=== PATIENT | male | born 1995 | race African-American/Black ===

== ENCOUNTER 2020-02-17 11:52 | Emergency (ER) | payer OTHER ==
[2020-02-17 12:03] VITALS: BP 156/92; PULSE 103; RESP 20
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
== END 2020-02-17 12:22 | disposition home or self-care (01) ==
LOC: EC 11:52
DX: S90.811A Abrasion, right foot, initial encounter (principal); S41.112A Laceration without foreign body of left upper arm, initial encounter; Y92.89 Other specified places as the place of occurrence of the external cause
CPT/HCPCS: 99283

== ENCOUNTER 2020-02-20 08:25 | Inpatient (IN) | payer OTHER ==
--- NOTE | 2020-02-20 10:01 | ED ---
General Adult HPI - General Chief complaint: Psychiatric Symptoms Stated complaint: mental health Time Seen by Provider: 02/20/20 08:30 Source: patient, police, RN notes reviewed, old records reviewed Mode of arrival: wheelchair - History of Present Illness Initial comments: This is a 24-year-old male who presents emergency department from the long term in the custody of the sheri. Patient was brought in because he was acting bizarrely at the long term he was yelling and screaming and taking off his clothes as well as drinking out of the toilet. Patient states that he doesn't even know how he got to long term he doesn't remember that. Patient denies any physical complaints. Patient denies any previous psychiatric history however the long term came with paperwork from [facility] that indicated he had a mental health history. Patient denies any drug use or alcohol use. - Related Data Allergies Allergy/AdvReac Type Severity Reaction Status Date / Time No Known Allergies Allergy Verified 02/20/20 08:32 Review of Systems ROS Statement: Those systems with pertinent positive or pertinent negative responses have been documented in the HPI. ROS Other: All systems not noted in ROS Statement are negative. Past Medical History Past Medical History: Unable to Obtain History of Any Multi-Drug Resistant Organisms: Unobtainable Past Surgical History: Unable to Obtain Past Psychological History: Unable to Obtain Smoking Status: Unknown if ever smoked Past Alcohol Use History: Unable to Obtain Past Drug Use History: Unable to Obtain General Exam - General Exam Comments Initial Comments: GENERAL: Patient is well-developed and well-nourished. Patient is nontoxic and well- hydrated and is in no acute distress. ENT: Neck is soft and supple. No significant lymphadenopathy is noted. Oropharynx is clear. Moist mucous membranes. Neck has full range of motion without eliciting any pain. EYES: The sclera were anicteric and conjunctiva were pink and moist. Extraocular movements were intact and pupils were equal round and reactive to light. Eyelids were unremarkable. PULMONARY: Unlabored respirations. Good breath sounds bilaterally. No audible rales rhonchi or wheezing was noted. CARDIOVASCULAR: There is a regular rate and rhythm without any murmurs gallops or rubs. ABDOMEN: Soft and nontender with normal bowel sounds. SKIN: Skin is clear with no lesions or rashes and otherwise unremarkable. NEUROLOGIC: Patient is alert and oriented x3. Cranial nerves II through XII are grossly intact. Motor and sensory are also intact. Normal speech, volume and content. Symmetrical smile. MUSCULOSKELETAL: Normal extremities with adequate strength and full range of motion. LYMPHATICS: No significant lymphadenopathy is noted PSYCHIATRIC: Normal psychiatric evaluation. Course Vital Signs 02/20/20 08:29 Temperature 98.7 F Pulse Rate 94 Respiratory 18 Rate Blood Pressure 183/111 O2 Sat by Pulse 98 Oximetry Disposition Clinical Impression: Psychosis Disposition: ADMITTED IP TO THIS HOSP Referrals: None,Stated [Primary Care Provider] - 1-2 days Time of Disposition: 13:20
[2020-02-20] MEDS ORDERED: MAG HYDROX/AL HYDROX/SIMETH 30 ML CUP PO PRN (14:02)
[2020-02-20] MEDS ORDERED: LORazepam 1 MG TAB PO PRN ×2 (14:02→16:19)
[2020-02-20] MEDS ORDERED: ACETAMINOPHEN TAB 325 MG TAB PO PRN (14:02)
[2020-02-20] MEDS ORDERED: ZIPRASIDONE 20 MG VIAL IM PRN (14:02)
[2020-02-20] MEDS ORDERED: LORazepam 2 MG/ML INJ IM PRN (14:04)
--- NOTE | 2020-02-20 15:49 | P.MHFACE ---
Face to Face Restrain/Seclus - Evaluation Patient's Immediate Situation: Endangers self safety, Endangers staff safety Patient's Reaction to the Intervention: Uncooperative, Restless, Resistive to care Patient's Medical & Behavioral Condition: Manic, Flight of ideas, Bizarre behavior Need to Continue or Terminate Restraint or Seclusion: Terminate Need to Continue or Terminate Restraint/Seclusion - Comment: Patient was placed in seclusion for erratic and bizarre behavior. He has not been violent towards staff. He was given 1 mg of Ativan and 20 mg of Geodon. He is currently sedated and does not require restraints anymore.
--- NOTE | 2020-02-20 15:50 | P.PN ---
Progress Note - Text Progress Note Date: 02/20/20 Patient is currently sedated after receiving Ativan and Geodon. He is not appropriate to be seen for history and physical. We will attempt to see him at a later date.
[2020-02-20] MEDS ORDERED: HALOPERIDOL LACTATE 5 MG/ML 1 ML VIAL IM PRN (16:21)
[2020-02-20] MEDS ORDERED: haloperidoL 5 MG TAB PO PRN (16:21)
[2020-02-20] MEDS ORDERED: BENZTROPINE 2 MG/2 ML AMP IM PRN (16:22)
[2020-02-20] MEDS ORDERED: BENZTROPINE MESYLATE 1 MG TAB PO PRN (16:22)
[2020-02-20] MEDS: LORazepam 2 MG/ML INJ IM PRN (23:21)
--- NOTE | 2020-02-21 11:52 | P.HP ---
Psychiatric H&P - . History & Physical: Allergies Allergy/AdvReac Type Severity Reaction Status Date / Time No Known Allergies Allergy Verified 02/20/20 08:32 Vital Signs Temp 98.7 F 02/20/20 08:29 Pulse 81 02/20/20 18:15 Resp 16 02/20/20 18:15 BP 145/96 02/20/20 18:15 Pulse Ox 98 02/20/20 08:29 Intake & Output 02/20/20 02/21/20 02/21/20 18:59 06:59 18:59 Weight 99.79 kg 02/21/20 11:18 IDENTIFYING DATA: This patient is a 24-year-old single -Central African male who was admitted on a petition and clinical certificate for acute symptoms of psychosis. HPI: The [facility]. He was originally arrested for [place] the [place] on [address] [place] excess of 100 miles an hour at times. Documentation from the [facility] suggests that the patient was agitated he was not eating. He felt that the guards might be poisoning his food or water. Because of his psychosis he was brought to the hospital for evaluation. In the same notes that mentions that contact was made with the patient's family specifically his sister Stella. She indicated that the patient has a diagnosis of schizophrenia and bipolar disorder. I did attempt to call Stella she indicated that the patient does have that diagnosis and that he was on 2 psychotropic medications. She states one of them was lithium she is unaware of the other medication and she could no longer read the label on the bottle. The patient and his family reside in the [facility]. Yesterday upon arriving to the mental health unit the patient was agitated he was exposing himself he required injections of medication as well as temporary seclusion. Today the patient is found in the quiet room with the door open. He is sleeping but is verbally arousable. He spontaneously describes delusional thoughts as well as endorsing hallucinations. He states that his family members are here in the hospital and he is being kept from them. He provides contradicting information at times throughout the interview. He discusses paranoid persecutory themes. He is agitated during the interview and the session was abbreviated. PAST PSYCHIATRIC HISTORY: We believe that the patient has been psychiatrically hospitalized before he was on a previous treatment order last year. At this point the only medication I'm aware of his lithium but it is presumed that he has been noncompliant with medication. PMH: None reported ALLERGIES: NO KNOWN DRUG ALLERGIES MEDICATIONS: None CHEMICAL DEPENDENCY HISTORY: None reported no urine drug screen is available FAMILY PSYCHIATRIC HISTORY: Unknown FAMILY CHEMICAL DEPENDENCY HISTORY: Unknown SOCIAL HISTORY: The patient's is a 24-year-old -Central African male he resides with his family in the [facility], they are refugees from [place] and originally were placed in [place]. There is report that he has been working. No other information is available at this time. MENTAL STATUS EXAM: The patient is found resting in bed he is verbally arousable. He appears his stated age she is dressed in hospital gowns. He only makes brief eye contact 3 times during our interaction. Initially speech is very quiet I need him to repeat himself several times. As the session progresses he does speak more loudly. Affect is initially blunted but becomes more irritable during the interaction. I did attempt to use distraction to other topics to redirect his irritability. He demonstrated no verbal or physical aggressiveness. He did provide nonspecific answers to several questions he denied having thoughts of wanting to hurt himself or others. He endorses auditory hallucinations as noted. He spontaneously describes paranoid persecutory thoughts. Insight and judgment are impaired. No cognitive testing could be performed during this interaction. STRENGTHS/WEAKNESSES: His: Supportive family, housing, possible employment weaknesses: Noncompliance with medication INTELLECTUAL FUNCTIONING: Average IMPRESSIONS: [] 1. Psychosis unspecified rule out schizoaffective disorder PLAN: Patient has been admitted to the mental health unit involuntarily. I will complete a second clinical certificate. He will be seen by internal medicine for routine history and physical exam we will attempt to perform routine lab work including a drug screen. Social work will attempt to complete a psychosocial assessment and begin discharge planning. I did make initial contact with his sister Stella just asking questions about his previous care. Unfortunately she was not able to provide much information so we will have to try to contact his last treating facility regarding medication. I would like to know what antipsychotic he was stabilized with during his last admission so that we are able to reinitiate that medication here. We will monitor him for safety we will provide reality orientation when possible. He is encouraged to participate in the milieu appropriately
--- NOTE | 2020-02-21 18:55 | P.HPMEDMHU ---
History of Present Illness H&P Date: 02/21/20 (delayed charting seen at 1500) Chief Complaint: psychosis Patient is a 24-year-old -Slovenian male admitted on petition after being brought in [facility] secondary to paranoia, initially was found [place] the wrong direction [place] [address] [place] 100 miles an hour. He was attempted be seen by our service line yesterday however he was agitated and requiring restraints, and then was sedated. Patient has continued to be in the quiet room and has been dealing with agitation. Patient seen and examined at bedside with nursing present. When asked to questions he keeps saying that he is fine. He answers this questions to chest pain, shortness of breath, cough, and abdominal pain. He then gets increasingly agitated in questioning was ceased. Most of the time when he is speaking in is garbled and difficult to understand. All information is obtained from thorough review of direct mentation from this hospitalization including history and physical from psychiatry, EPS, and emergency notes. Review of Systems Unable to obtain review of systems secondary to patient's mental health, and him unwilling to answer questions. Past Medical History Past Medical History: Unable to Obtain History of Any Multi-Drug Resistant Organisms: Unobtainable Past Surgical History: Unable to Obtain Past Psychological History: Unable to Obtain Smoking Status: Unknown if ever smoked Past Alcohol Use History: Unable to Obtain Past Drug Use History: Unable to Obtain - Past Family History Mother Family Medical History: Unable to Obtain Medications and Allergies Home Medications Medication Instructions Recorded Confirmed Type No Known Home Medications 02/20/20 02/20/20 History Allergies Allergy/AdvReac Type Severity Reaction Status Date / Time No Known Allergies Allergy Verified 02/20/20 08:32 Physical Exam Osteopathic Statement: *. No significant issues noted on an osteopathic structural exam other than those noted in the History and Physical/Consult. Vitals: Vital Signs Temp 02/21/20 13:00 98.1 F General: non toxic, no distress, appears at stated age, normal weight Derm: Patient currently Does not want to take this down Head: atraumatic, normocephalic, symmetric Eyes: EOMI, no lid lag, anicteric sclera, Mouth: no lip lesion, mucus membranes moist Cardiovascular: S1S2 reg, no murmur, Lungs: CTA bilateral, no rhonchi, no rales , no accessory muscle use Abdominal: soft, nontender to palpation, no guarding, no appreciable organomegaly, normal bowel sounds Ext: Moving all 4 extremities independently, able to rotate from front to back to bed without difficulty Neuro: Cranial nerves II through XII grossly intact, no resting or intention tremor Psych: Awake, alert to self, appears anxious, most of his speech is garbled and unintelligible Cranial Nerve Examination - Cranial Nerves Cranial Nerve II- Optic: Intact Cranial Nerve III- Oculomotor: Intact Cranial Nerve IV- Trochlear: Intact Cranial Nerve V- Trigeminal: Intact Cranial Nerve - Abducens: Intact Cranial Nerve VII- Facial: Intact Cranial Nerve VIII- Auditory: Intact Cranial Nerve IX- Glossopharyngeal: Intact Cranial Nerve X- Vagus: Intact Cranial Nerve XI- Accessory: Intact Cranial Nerve XII- Hypoglossal: Intact Assessment and Plan Assessment: Psychosis - your psych management Thank you for allowing us to participate in the care of this pleasant patient. Do not hesitate to contact us with questions. Someone can be reached from the [facility] hospitalist group all hours of the day at [phone] or via [employer]. Nursing to call us if any acute issues arise during hospital stay.
[2020-02-22 09:45] VITALS: BMI 32.5
--- NOTE | 2020-02-22 09:53 | P.PN ---
Progress Note - Text Interval history: The patient is found in the hallway on 2 separate occasions this morning I approached him and asked him to speak with me in a conference room. He did not acknowledge me either time or make eye contact. With both attempted interactions he simply walked away. Staff report that this morning he has been mute. He did interact with the social media senior associate briefly making bizarre statements. He reportedly slept 3 hours. So far he has not been eating although we have been trying to provide a vegan menu as that is his preferred diet. He has been refusing vital signs he is refused lab work. We continue to try to obtain information from his outpatient psychiatric agency which is out of the area. Several calls have been placed we are awaiting response so we can see which antipsychotic medication he was stabilized with last. As noted I did speak to his sister yesterday who was only partially helpful in providing info rmation regarding medication. While I was on that call his sister asked the patient's mother if she could provide information and she could not. Mental status exam: The patient is a 24-year-old -Lebanese male he is ambulating in the hallway he is dressed in hospital gowns and wearing a blanket over top. He is initially found this morning staring at the wall for several minutes. He does not acknowledge me upon approach he makes no eye contact and he walks away. Later in the morning a second attempt was made to engage him in an interview and he provided the same response. He is found slowly walking in the hallway throughout the morning. He continues to demonstrate behavior that is consistent with the psychosis that he reported yesterday. He appears to be in no physical distress. He is demonstrating no verbal or physical aggressiveness he is demonstrating no involuntary repetitive movements. Insight and judgment are poor. Affect is flat. Plan: We will continue our efforts to obtain treatment information from his last known outpatient provider. If we're unsuccessful we will initiate Invega 6 mg daily starting today. I am selecting this as an antipsychotic as it is one of our choices for long-term Depo form. We will monitor him for safety we will continue to try to engage him in a therapeutic manner. Once he is responsive we will encourage him to participate in the milieu. We will monitor for any aggressiveness. Vital signs and lab work unavailable at this time due to his lack of cooperation. He requires continued psychiatric hospitalization.
[2020-02-22] MEDS ORDERED: haloperidoL 5 MG TAB PO SCH (21:00)
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
[2020-02-23] MEDS: PALIPERIDONE 6 MG TAB.ER.24 PO SCH (11:03)
[2020-02-24] MEDS: PALIPERIDONE 6 MG TAB.ER.24 PO SCH (09:36)
--- NOTE | 2020-02-24 16:28 | P.PN ---
Progress Note - Text Progress Note Date: 02/24/20 Interval history: Patient seen in [facility] today. He relates that his mood feels normal today. He was alert and cooperative to come into the interview room. He seems to relay that he wasn't offered any medication. We did discuss that invega was to be started yesterday. Mental status exam: He is alert and cooperative with the interview. His affect is restricted. He describes his mood as "normal." He does not verbalize any thoughts of harm to self or others. He does not verbalize any hallucinations. He does not display any agitation. Plan: We'll monitor patient's ongoing status and response to treatment regimen. We'll continue to monitor regarding compliance with medications. Monitor for any medication side effects.
[2020-02-25] MEDS: ZIPRASIDONE 20 MG VIAL IM PRN (01:47)
[2020-02-25] MEDS: LORazepam 2 MG/ML INJ IM PRN (01:47)
[2020-02-25] MEDS: PALIPERIDONE 6 MG TAB.ER.24 PO SCH (10:36)
--- NOTE | 2020-02-25 11:24 | P.PN ---
Progress Note - Text Progress Note Date: 02/25/20 Interval history: Patient was seen in [facility] again today. He makes reference to having received 2 injections last night. He states that the medication made him feel lazy. He makes reference to not sleeping well last night, makes reference to multiple checks every 15 minutes. It seems as though he is not taking the oral inVega, he inquires what invega can be beneficial for which we discussed. Mental status exam: He is alert and cooperative with the interview. His speech is fluent, not rapid or pressured. His mood he seems to describe this fine. He does not verbalize any thoughts of harm to self or others. He denies any hallucinations. He seems to describe that many patients are not taking theirr medications because of 'what is going on behind closed doors.' He does not display any significant degree of agitation. Plan: Patient will be maintained on current treatment regimen. We did discuss and he is educated about some of the purposes of invega. Continue to monitor compliance and monitor for any medication side effects.
[2020-02-26] MEDS: PALIPERIDONE 6 MG TAB.ER.24 PO SCH (09:07)
--- NOTE | 2020-02-26 10:58 | P.PN ---
Progress Note - Text Interval history: The patient is found in the hallway he refuses to speak with me. He is standing in the hallway leaning against the wall he intentionally makes no eye contact with me. He provides no verbal response. During treatment team meeting I was informed that he demonstrated some agitated behavior over the weekend and required intramuscular Geodon. He has been refusing the oral invega. He apparently signed a deferral agreement however so we will need to request a demand for hearing. He has been selectively eating some meals. Mental status exam: The patient is an -[place]amanian male appearing his stated age he is dressed in hospital gowns and is wearing a blanket over top. Eye contact is absent. He provides no verbal responses to my inquiries. He appears to continue to have acute symptoms of psychosis. Insight and judgment are poor. During our brief interaction he demonstrated no verbal or physical aggres siveness he demonstrates no involuntary repetitive movements. He appears to be in no physical distress. He is standing and ambulating without difficulty. Plan: We will request a demand for hearing the patient remains acutely psychotic and is refusing antipsychotic medication. He has refused vital signs yesterday and today. We will monitor him for safety efforts are made to provide reality orientation when possible. He requires continued psychiatric hospitalization.
[2020-02-27] MEDS: LORazepam 2 MG/ML INJ IM PRN (05:43)
[2020-02-27] MEDS: ZIPRASIDONE 20 MG VIAL IM PRN (05:43)
--- NOTE | 2020-02-27 10:45 | P.PN ---
Progress Note - Text Interval history: The patient's found in his room sleeping. He is lethargic he received intramuscular injections this morning for agitated behavior. He was not able to maintain alertness for the conversation. I did attempt to speak with him twice during the morning hours. Staff report that the patient continues to demonstrate psychotic behavior. There is some documentation that he demonstrated intimidating behavior. He continues to refuse the oral Invega. We have filed a demand for hearing. Mental status exam: The patient is resting in bed comfortably. He is in no distress. He is very briefly verbally arousable and then returns to sleep. I did try to interview him twice this morning. He is dressed in hospital gowns c overed with a blanket. The interaction was very limited. Insight and judgment remain poor. Plan: The patient demonstrates acute symptoms of psychosis he is requiring when necessary injections for behavioral disturbances. We are awaiting his court hearing. He requires continued psychiatric hospitalization. No recent vital signs available.
[2020-02-27] MEDS: PALIPERIDONE 6 MG TAB.ER.24 PO SCH (12:17)
[2020-02-28] MEDS: ZIPRASIDONE 20 MG VIAL IM PRN (06:27)
[2020-02-28] MEDS: LORazepam 2 MG/ML INJ IM PRN (06:27)
[2020-02-28] MEDS: PALIPERIDONE 6 MG TAB.ER.24 PO SCH (08:55)
--- NOTE | 2020-02-28 11:15 | P.PN ---
Progress Note - Text Interval history: The patient is found in his room sleeping he is verbally arousable. He is irritable he refuses to follow me to an interview room he demands at the room lights be turned off and the doors closed. He provides no answers to any questions asked. He makes spontaneous statements that he needs questions answered and needs information. Despite further attempts to provide him information he was uncooperative. He continues to refuse the invega. The patient does not have court schedule until March 06. Staff report that the patient was verbally aggressive in the evening he required injections again. Mental status exam the patient is lying in bed he makes poor eye contact he is uncooperative he demonstrates irritability. He continues to demonstrate evidence of psychosis. Insight and judgment are poor. He appears to be in no physical distress. He is disheveled he is covered almost completely with a blanket. He demonstrates no abnormal involuntary movements. Plan: The patient remains acutely psychotic with agitated behavior he is refusing oral antipsychotic medication. He is receiving injections of Geodon for acute psychosis/agitation. We are waiting his court hearing on March 06. He requires continued psychiatric hospitalization.
--- NOTE | 2020-02-29 08:55 | P.PN ---
Progress Note - Text Interval history: The patient is found in the hallway standing outside of my office against the wall. Despite several attempts the patient would not engage in conversation he would not meet with me in an interview room. Only once briefly did he make eye contacts otherwise he purposely looked away while I attempted to speak with him. The patient continues to refuse lab work he refuses vital signs. He continues to refuse the oral antipsychotic medication. His last injection of Geodon for agitation was given yesterday morning. Mental status exam: The patient is an alert -[place] male appearing his stated age. He is dressed in hospital gowns he is wearing a blanket over top. He appears to be no physical distress. Affect is flat. He provides no verbal responses despite several attempts to provoke his participation in an interview. He is demonstrating no verbal or physical aggressiveness he is demonstrating no involuntary repetitive movements. Insight and judgment remain poor. He appears acutely psychotic. Plan: We continue to await the patient's court hearing which is scheduled for March 06. We will continue to offer the oral invega. We will use the injectable Geodon as needed for acute psychosis or agitation. We will monitor him for safety. We will continue to monitor his food and water intake. It appears that he ate most of his dinner last evening. We will involve family in treatment and discharge planning as he will allow. He requires continued psychiatric hospitalization.
[2020-02-29] MEDS: PALIPERIDONE 6 MG TAB.ER.24 PO SCH (09:10)
[2020-03-01] MEDS: ZIPRASIDONE 20 MG VIAL IM PRN (00:57)
[2020-03-01] MEDS: LORazepam 2 MG/ML INJ IM PRN (01:00)
--- NOTE | 2020-03-01 09:13 | P.PN ---
Progress Note - Text Interval history: The patient is found in his room lying in bed. He is verbally arousable. Today he participates in the conversation. He states that he would like to be released from the hospital. He indicates he does not take medication at home so he does not need it here. He states he is up all night because people keep checking on him as part of the safety rounds. He reports that he received another injection of medication. He indicates he is eating he is not attending groups. He reports he has not been speaking with his family via phone. Mental status exam: The patient is alert he is lying in bed he is dressed in hospital gowns he's partially covered with a blanket. Eye contact is intermittent. He has spontaneous speech is mildly pressured at times. He has an irritable affect. He has poor insight into his symptoms he continues to display evidence of psychosis. He denies expansion any auditory or visual garibay ucinations. He continues to describe paranoid and persecutory thoughts. He demonstrated no aggressiveness during our interaction he demonstrates no involuntary repetitive movements. Plan: The patient remains acutely psychotic he requires continued psychiatric hospitalization. He is refusing the oral Invega. He is refusing vital signs. No laboratory data available to review. We are awaiting his court date March 06.
[2020-03-01] MEDS: PALIPERIDONE 6 MG TAB.ER.24 PO SCH (10:29)
--- NOTE | 2020-03-02 09:54 | P.PN ---
Progress Note - Text Interval history: The patient's found in the hallway he again provides no response when I approach him. He deliberately makes no eye contact. He is observed standing in place and also ambulating slowly throughout the unit. He continues to refuse the oral invega. It appears he did receive Ativan early this morning but now Geodon injection. Mental status exam: The patient is alert he is ambulating without difficulty he appears to be in no physical distress, he is dressed in hospital gown is wrapped in a blanket. He deliberately makes no eye contact he provides no verbal response when I attempt to speak with him. He appears grossly psychotic. He is demonstrating no verbal or physical aggressiveness at this time. There is no spontaneous speech. Insight and judgment are poor. Plan: The patient will be offered the oral invega. He has been refusing antipsychotic medication. He remains acutely psychotic. We are waiting his court date of March 06. He has been refusing vital signs and lab work. He we'll monitor for safety. We will provide reality orientation when possible. He requires continued psychiatric hospitalization.
[2020-03-02] MEDS: PALIPERIDONE 6 MG TAB.ER.24 PO SCH (10:02)
[2020-03-03] MEDS: PALIPERIDONE 6 MG TAB.ER.24 PO SCH (08:42)
--- NOTE | 2020-03-03 09:57 | P.PN ---
Progress Note - Text Interval history: The patient's found in the hallway just outside of my office standing by the wall. Upon approach he makes no eye contacts he provides no direct verbal response. Attempts were made to have him engage in a conversation and follow me to an interview room. He declined. Afterwards he is observed standing outside speaking angrily to himself. In reviewing notes it appears that he refused all 3 meals yesterday. He only slept approximately 2 hours last evening. He continues to refuse the oral invega. Mental status exam: The patient is an alert -Sudanese male appearing his stated age, he continues to be dressed in hospital gowns and he is wearing a blanket over top. He has a more irritable agitated demeanor this morning. He remains uncooperative in terms of participating in the interview. He appears grossly psychotic. Insight and judgment are poor. He demonstrates no evidence of acute physical distress respirations normal he is standing and ambulating without ataxia. He is demonstrating no involuntary repetitive movements. Plan: The patient is being offered the oral invega which she is refusing. He refused meals yesterday we will continue to encourage appropriate nutrition and hydration we are waiting his court date March 06. He remains acutely psychotic and requires continued psychiatric hospitalization.
[2020-03-03] MEDS: ZIPRASIDONE 20 MG VIAL IM PRN (12:18)
[2020-03-04] MEDS: PALIPERIDONE 6 MG TAB.ER.24 PO SCH (08:25)
[2020-03-04] MEDS ORDERED: WATER FOR INJECTION, STERILE 10 ML IV ONE (10:02)
[2020-03-04] MEDS ORDERED: ZIPRASIDONE 20 MG VIAL IM ONE (10:02)
[2020-03-04] MEDS: ZIPRASIDONE 20 MG VIAL IM PRN (10:12)
[2020-03-04] MEDS: LORazepam 2 MG/ML INJ IM PRN (10:12)
--- NOTE | 2020-03-04 10:14 | P.PN ---
Progress Note - Text Interval history: The patient's found in the hallway. Twice I attempted to engage him in conversation and tried to get him to speak with me in an interview room. Both times he refuses. He is observed in the hallway slowly pacing. He is talking to himself out loud. He will briefly interact with some peers in the hallway. He continues to refuse the invega. He is refusing vital signs he has not complied with blood work. It appears that he ate his breakfast this morning and 25% of dinner yesterday. He did receive a Geodon injection just afternoon yesterday due to his agitated behavior. Mental status exam: The patient is an -[place]guill[place] male appearing his stated age. He is dressed in hospital gowns is covered with a blanket. He slowly paces in the hallway. He is quieter today compared to yesterday morning. He is still speaking out loud to himself. He refuses to speak with me he makes no eye contact. Insight and judgment remain poor. Based on his behavior and statements he continues to appear acutely psychotic. He does not answer any questions as part of the psychiatric review of systems. He appears to be in no acute physical distress. Plan: The patient will be offered the invega, we are awaiting his court date on March 06. He requires continued psychiatric hospitalization due to his acute psychosis. We will monitor him for safety. He is encouraged to properly participate in the milieu. Efforts are made to provide reality orientation when possible.
[2020-03-05] MEDS: LORazepam 2 MG/ML INJ IM PRN (02:19)
[2020-03-05] MEDS: ZIPRASIDONE 20 MG VIAL IM PRN (02:19)
[2020-03-05] MEDS: PALIPERIDONE 6 MG TAB.ER.24 PO SCH (08:33)
--- NOTE | 2020-03-05 10:54 | P.PN ---
Progress Note - Text Interval history: The patient is found in the hallway he follows me to a conference room to speak. The patient actually engaged in conversation for several minutes. He indicates that he has not been speaking to me lately but he was trying to show me with his eyes "what is going on around here". He describes his principal concern as children being in danger. He asked several unrelated questions. He states that he feels that I'm related to several people here and I just discharged my son from the mental health unit yesterday. He describes feelings that people are unsafe and he is trying to protect people. He indicates he does not require a medication he is a vegan and he meditates "which is my drug". Staff report that the patient continues to demonstrate some agitated behavior. He did receive an injection of Geodon and Ativan early this morning. Mental status exam: The patient is alert he is dressed in hospital gowns he is covered with a blanket. He is found standing in the hallway outside of my office. He follows me to an interview room. He does remain seated in the chair for the duration of our conversation. Speech is fluent and spontaneous nonpressured he is verbose. He demonstrates some tangential thinking and loose associations. He continues to describe paranoid and persecutory thoughts. He describes himself in a grandiose fashion as a protector. Insight and judgment are poor. He demonstrated no verbal or physical aggressiveness he demonstrates no involuntary repetitive movements. He denies having any thoughts of harming himself or harming anyone else. Affect is bland throughout the conversation. Plan: The patient is being offered the invega. He has been refusing. Assuming we are granted a treatment order we will administer Geodon IM if he refuses the oral invega. The patient remains acutely psychotic he requires inpatient psychiatric care. We will continue to monitor him for safety. Efforts are made to provide reality orientation when possible
[2020-03-06] MEDS: PALIPERIDONE 6 MG TAB.ER.24 PO SCH (09:33)
--- NOTE | 2020-03-06 11:14 | P.PN ---
Progress Note - Text Progress Note Date: 03/06/20 Interval history: Patient was seen wandering the hallways with a bedsheet around his back and was approached by medical writer to speak with patient and. Patient appeared to be responding to internal stimuli speaking is laughing to himself at times and has been noticed to be wandering the hallways. Patient continues to be refusing medications and treatment and has been sleeping on and off and has been withdrawn/isolative. Patient acknowledges medical writer however adamantly declined to be interviewed and stated "no questions" and proceeded to walk away from medical writer. Mental status exam: General Appearance: Patient appears to be stated age is alert, uncooperative and responding to internal stimuli. Wearing a bedsheet and hospital gown. Behavior: No agitated behavior. Patient is responding to internal stimuli Speech: Patient's speech is fluent and nonpressured. Mood/Affect: Unable to be assessed Suicidality/Homicidality: Unable to be assessed Perceptions: Responding to internal stimuli Though content/process: [place]. Bizarre. Memory and concentration: Unable to be assessed Judgment and insight: Poor Assessment/Plan: Continue with current diagnosis. Patient continues to meet criteria for inpatient psychiatric admission for symptom stabilization and safety.Patient will be maintained on current psychotropic medication regimen. Patient is refusing his medications at this time. Will continue to monitor ongoing response to treatment. Patient is scheduled for court hearing today.
[2020-03-07] MEDS: PALIPERIDONE 6 MG TAB.ER.24 PO SCH (09:39)
--- NOTE | 2020-03-07 09:56 | P.PN ---
Progress Note - Text Interval history: The patient is found in his room. He is laying on the floor adjacent to his bed. Upon entering the room he asked that I leave as he does not wish to participate in any questions. In inquiring why he was on the floor he states he did not suffer a fall. The patient has refused the oral Invega this morning. He was scheduled have a court hearing yesterday. If we did receive a treatment order we will need to were Geodon injection if he refuses the oral invega. He refuses vital signs other than a temperature. The labs available. Mental status exam: The patient is an -Nigerian male appearing his stated age. He is covered up to his neck with a blanket he is lying supine on the floor adjacent to his bed. He is able to speak appropriately he is in no physical distress. He does have spontaneous speech. He objects to participating in a mental status exam today. Insight and judgment remain poor. Prior to entering the room he could be heard talking out loud to himself. During our brief interaction he makes several irrelevant statements that appear paranoid in nature. He demonstrated no verbal or physical aggressiveness he is demonstrating no involuntary repetitive movements. Insight and judgment remain poor. Plan: The patient will continue on the invega once I confirm that we did receive a treatment order we will initiate Geodon injections if he refuses the oral medication. The patient remains grossly psychotic and requires continued inpatient psychiatric care. We will monitor him for safety and provide reality orientation when possible. He is encouraged to participate in the milieu but he has been refusing.
[2020-03-08] MEDS: PALIPERIDONE 6 MG TAB.ER.24 PO SCH (08:34)
--- NOTE | 2020-03-08 11:51 | P.PN ---
Progress Note - Text Interval history: The patient's found in his room upon approaching his room he could be heard talking loudly to himself. Upon approach he indicates he is fine. He states that he wants his father to know that he is here and he has 2 parents. He states that they both need to be here to take him from this hospital. He reports he did not eat breakfast this morning he did not sleep well last night. He has been isolating in his room during the earlier part of the morning he was observed standing in the hallway later in the morning. Staff report no behavioral disturbances. Apparently there is some legal technicality and we have not been given a copy of the court order therefore we have not been able to enforce compliance with the antipsychotic medication. Mental status exam: The patient is alert he standing in his room looking out the window he is dressed in hospital gowns the room is malodorous. He does make some eye contact he has spontaneous speech she is verbose mildly pressured at times. He describes paranoid persecutory thinking at times he verbalizes disorganized delusional thoughts. He demonstrates no verbal or physical aggressiveness he maintains a blunted affect. There is no evidence of involuntary repetitive movements. Insight and judgment remain poor thought process is not well organized. Plan: We continue to await the court order so that we can enforce compliance with the antipsychotic medication. The patient remains acutely psychotic. His psychosocial function has been significantly impaired as a result he is not meeting his ADLs. He is encouraged to participate in the milieu we will provide reality orientation when possible.
--- NOTE | 2020-03-09 10:42 | P.PN ---
Progress Note - Text Progress Note Date: 03/09/20 Interval history: Patient was seen laying down beside his bed on the floor and when patient was approached by engineering writer, patient immediately got up and adamantly told engineering writer "I need you to leave can she see him sleeping". He was uncooperative and argumentative with engineering writer and demanded him to leave several times and refused to answer any questions. Patient has not been taking his medications. Mental status exam: General Appearance: Patient appears to be stated age is alert, uncooperative and responding to internal stimuli. Wearing hospital gown. Behavior: No agitated behavior. Patient is responding to internal stimuli Speech: Patient's speech is fluent and nonpressured. Mood/Affect: Unable to be assessed Suicidality/Homicidality: Unable to be assessed Perceptions: Responding to internal stimuli Though content/process: [place]. Bizarre. Memory and concentration: Unable to be assessed Judgment and insight: Poor Assessment/Plan: Continue with current diagnosis. Patient continues to meet criteria for inpatient psychiatric admission for symptom stabilization and safety.Patient will be maintained on current psychotropic medication regimen. Patient is refusing his medications at this time. Will continue to monitor ongoing response to treatment. Currently awaiting court order.
[2020-03-09] MEDS: PALIPERIDONE 6 MG TAB.ER.24 PO SCH (12:31)
[2020-03-10] MEDS: PALIPERIDONE 6 MG TAB.ER.24 PO SCH (09:00)
--- NOTE | 2020-03-10 10:02 | P.PN ---
Progress Note - Text Progress Note Date: 03/10/20 Interval history: Patient was seen standing and looking outside of the window into the parking lot. Patient was approached by proposal manager writer to be interviewed however patient appeared to be fairly paranoid and asked the proposal manager writer several times to lower his voice. He states that "people might hear you". He also repeatedly asked proposal manager writer to shut the door behind him to his room. Patient appeared to be responding to internal stimuli and speaking to himself at times. Patient was concrete and answered a few questions. He states that he slept well last night and asked proposal manager writer to look at his bed which was on the floor. Patient was acting bizarre and continues to be noncompliant with his medications. He denied any auditory or visual hallucinations and denied any suicidal or homicidal ideations intent or plan Mental status exam: General Appearance: Patient appears to be stated age is alert, paranoid, responding to internal stimuli. Wearing hospital gown. Behavior: No agitated behavior. Patient is responding to internal stimuli. Endorsing paranoia. Speech: Patient's speech is fluent and nonpressured. Mood/Affect: Patient states his mood is "okay" and affect is constricted. Suicidality/Homicidality: Denies Perceptions: Responding to internal stimuli, denies any auditory or visual hallucinations. Though content/process: [place]. Bizarre. Endorsing paranoia. Memory and concentration: Alert and oriented 3. Judgment and insight: Poor Assessment/Plan: Continue with current diagnosis. Patient continues to meet criteria for inpatient psychiatric admission for symptom stabilization and safety.Patient will be maintained on current psychotropic medication regimen. Patient is refusing his medications at this time. Will continue to monitor ongoing response to treatment. Currently awaiting court order.
[2020-03-10] MEDS ORDERED: ZIPRASIDONE 20 MG VIAL IM ONE (21:54)
[2020-03-10] MEDS ORDERED: WATER FOR INJECTION, STERILE 10 ML IV ONE (21:54)
[2020-03-10] MEDS: LORazepam 2 MG/ML INJ IM PRN (21:59)
[2020-03-10] MEDS: ZIPRASIDONE 20 MG VIAL IM PRN (21:59)
[2020-03-11] MEDS: PALIPERIDONE 6 MG TAB.ER.24 PO SCH (08:58)
--- NOTE | 2020-03-11 10:21 | P.PN ---
Progress Note - Text Interval history: The patient is found in the hallway we spoke in his room. He indicates his mood is fine. He states he continues to not speak to his family as he feels it is unsafe for them to come here. He states he needs to be discharged so he can go protect them. He continues to refuse the oral invega. We have finally received the order from the court this morning. I have placed an order that the patient will receive Geodon IM if he refuses the oral invega. The patient refuses vital signs we have no lab work available. Mental status exam: The patient is standing in the hallway he is dressed in hospital gowns his hair is wrapped in a towel. Eye contact is poor. We were able to speak in his room he remained standing the entire time. He stood with his arms crossed. He continues to describe paranoid persecutory thinking. He reports no suicidal or homicidal ideation. He feels that he and his family are in danger. Insight and judgment are impaired. He is demonstrating no verbal or physical aggressiveness during our brief interaction. He is demonstrating no involuntary repetitive movements. Affect is flat throughout our discussion. Plan: The patient will be offered the invega 6 mg daily. He will receive he continues to demonstrate acute symptoms of psychosis. We will monitor him for safety and encourage full participation in the milieu. an injection of Geodon if he refuses as we now have a court order in place.
[2020-03-11] MEDS: ZIPRASIDONE 20 MG VIAL IM PRN (15:13)
[2020-03-12] MEDS: PALIPERIDONE 6 MG TAB.ER.24 PO SCH (10:06)
[2020-03-12] MEDS ORDERED: ZIPRASIDONE 20 MG VIAL IM ONE (10:07)
[2020-03-12] MEDS ORDERED: WATER FOR INJECTION, STERILE 10 ML IV ONE (10:07)
[2020-03-12] MEDS: ZIPRASIDONE 20 MG VIAL IM PRN ×2 (10:16→10:31)
--- NOTE | 2020-03-12 10:54 | P.PN ---
Progress Note - Text Interval history: The patient is found in the hallway he is agreeable to speak with me in his room. He indicates his mood is frustrated. He states that someone told his parents that he is . He wants them to come to the hospital. We discussed that he is now on a treatment order and he is encouraged to comply with the oral invega. He indicates that he will not. He asked for the name of the [place] judge that order treatment and states he did not participate in a hearing and he had no brake operator sheet metal representing him. He plans to contact his own brake operator sheet metal. Staff report no behavioral disturbances. The patient has been eating he slept approximate 3 hours last night. He did receive a Geodon injection this morning after refusing the invega. Mental status exam: The patient is alert he is dressed in hospital gowns is wrapped in a blanket. He is walking in the garibay barefoot. He stands in his room he has a staring eye contact. Speech is fluent spontaneous. He is verbose. He is mildly pressured at times but does respond to some redirection. He continues to spontaneously describe paranoid and persecutory thoughts. Insight and judgment are poor. He demonstrates no verbal or physical aggressiveness. He demonstrates no involuntary repetitive movements. He is in no physical distress. He ambulates without difficulty. He reports no thoughts of harming himself or others. Affect becomes irritable during the session. Plan: The patient will continue being offered the invega. We will continue to give him a Geodon injection if he refuses the medication. We will consider switching the Geodon to Haldol if needed. He remains acutely psychotic. He requires continued psychiatric hospitalization. He is encouraged to appropria tely participate in the milieu. Efforts are made to provide reality orientation.
[2020-03-12] MEDS: MAGNESIUM HYDROXIDE 2,400 MG/10 ML CUP PO PRN (10:56)
[2020-03-13] MEDS: PALIPERIDONE 6 MG TAB.ER.24 PO SCH (08:59)
--- NOTE | 2020-03-13 09:15 | P.PN ---
Progress Note - Text Interval history: The patient is found in the hallway he is willing to speak with me in his room. The patient is visibly upset. He states that he needs to be released to protect his family. He states "you know what's going on". He reports he needs to go back in the hallway to monitor things for safety. It appears that he took the first dose of invega this morning rather than getting the Geodon injection. He indicates he did not eat breakfast this morning staff reportedly slept 2-3 hours last night. Mental status exam: The patient is alert he is dressed in hospital gowns and wearing a blanket over top. He is wearing no socks or shoes. Eye contact is staring in nature he has an irritable affect. Speech is fluent spontaneous mildly pressured at times speech has an irritable tone. He reports no thoughts of harming himself or others. He spontaneously describes paranoid and persecutory thoughts. Insight and judgment remain poor. He demonstrates no aggressive behavior. He is oriented to person place and date. He demonstrates no involuntary repetitive movements. Plan: The patient will continue on the invega 6 mg daily. We will consider titrating the dose. This is the first day that he started to comply with the medication. The patient remains acutely psychotic he requires continued psychiatric hospitalization. He is encouraged to appropriately participate in the milieu. He refuses vital signs.
[2020-03-14] MEDS: PALIPERIDONE 6 MG TAB.ER.24 PO SCH (09:17)
[2020-03-14] MEDS: MAGNESIUM HYDROXIDE 2,400 MG/10 ML CUP PO PRN (09:18)
--- NOTE | 2020-03-14 09:42 | P.PN ---
Progress Note - Text Interval history: The patient is found in the hallway we spoke in his room. He indicates his mood is good. He would not elaborate further. He reports difficulty sleeping at night he reports he ate breakfast. He reports he did not attend group yesterday as he feels he doesn't get anything out of the group. The patient was fairly guarded he did not demonstrate much spontaneous speech. He did comply with the Invega this morning. He refuses vital signs. No lab work available. Mental status exam: The patient is alert he is found staining at the end of the hallway looking out the window of the door. He is dressed in hospital gowns and wearing a blanket over top. He reports his mood is good affect is flat. He reports no thoughts of harming himself or others. He reports having no psychiatric symptoms but he does continue to demonstrate evidence of paranoid and persecutory thoughts. He demonstrates no verbal or physical aggressiveness. He has a staring eye contact throughout our interaction. He demonstrates no repetitive involuntary movements. He continues to stand for the duration of the session. He ambulates without any signs of ataxia. He appears to be in no physical distress. Plan: The patient will continue on the invega. Once we see that he is improving in terms of his psychosis we will transition him to Invega [facility]. He continues to demonstrate acute symptoms of psychosis and he requires continued inpatient psychiatric care. We will monitor him for safety. He is encouraged to participate in the milieu. We will involve his family in his treatment and discharge planning as he will allow.
[2020-03-15] MEDS: PALIPERIDONE 6 MG TAB.ER.24 PO SCH (09:21)
[2020-03-15] MEDS: MAGNESIUM HYDROXIDE 2,400 MG/10 ML CUP PO PRN (09:24)
--- NOTE | 2020-03-15 11:23 | P.PN ---
Progress Note - Text Interval history: The patient's found in the hallway he follows me to his room to speak. He indicates his mood is fine. He reports continued compliance with the invega. He states that he is not going to groups as they have nothing to offer him. He indicates he is sleeping at night appetite is stable. He is uncertain if his family will visit this weekend. He goes on to ask several bizarre questions about his family visiting and group participation. He has no questions regarding his medication. Mental status exam: The patient's found in the hallway he is alert he is standing in the area of the front worker looking about the unit. He is dressed in hospital gowns he's wrapped in a blanket. In his room he remains standing eye contact is staring in nature. He denies having any symptoms. He indicates that he is willing to continue taking medication. He will spontaneously describe paranoid and persecutory thoughts. He continues to have concerns about people safety here in the hospital, the safety of children in the world, and the safety of his family. Insight and judgment are poor. He demonstrates no verbal or physical aggressiveness he demonstrates no involuntary repetitive movements. Plan: The patient will continue on the invega we will increase the dose to 9 mg daily. He is encouraged to participate in the milieu. We spent some time discussing the different groups and they're purposes. We will monitor him for safety vital signs are not available. He requires continued psychiatric hospitalization.
[2020-03-16] MEDS: PALIPERIDONE 3 MG TAB.ER.24 PO SCH (09:24)
[2020-03-16] MEDS: MAGNESIUM HYDROXIDE 2,400 MG/10 ML CUP PO PRN (15:38)
--- NOTE | 2020-03-16 18:14 | P.PN ---
Progress Note - Text Progress Note Date: 03/16/20 Subjective: Patient was seen today as a cross coverage for . The patient was evaluated, chart reviewed, case discussed with the treatment team. Patient reported good sleep last night. Appetite was reported as "fair ". Patient has not been going to groups and other unit activities. The patient is compliant with his medications and denies any adverse reactions. Patient reports feeling stable emotionally and he denies feeling depressed, hopeless, or suicidal. He denies any severe mood swings, or homicidal ideation. He denies any manic or psychotic symptoms. He reports wanting to be discharged on Wednesday and he wants to go back to stay with his family. Patient reports wanting to continue his psychiatric medications. Objective: Vitals has been reviewed. Mental status examination; Appearance: The patient appears stated age, adequately groomed and dressed, no specific features. Gait/posture: Normal gait, Normal arm swinging: No abnormal movements. Attitude and behavior: engaged, cooperative, eye contact. Motor activity: Normal psychomotor activity Speech: Normal rate, tone. Mood: Anxious Affect: Constricted Thought form: goal-directed, linear, coherent. Thought content: Non-delusional, denies suicidal thoughts, denies homicidal thoughts, denies intentions or plans. Perception: Denies any auditory or visual hallucinations Attention: No impairment. Orientation: Patient patient was fully oriented to time place person and situation. Insight: Patient has fair insight about his psychiatric disorder. Judgment: Patient has fair judgment about his psychiatric treatment. Assessment: Unspecified psychotic disorder. Rule out schizoaffective disorder. Plan: Continue inpatient level of care due to need for further monitoring and discharge planning Precautions: Continue 15 minutes check for safety. Consider medical consultation if any acute medical issues arise. Provide the patient individual, group therapy, substance use disorder counseling to give better insight and learn coping skills. Continue follow-up with the patient daily to monitor progress of psychotic and mood instability symptoms. Medications: Continue Invega for mood stabilization and psychotic symptoms. Discharge patient to OUTPATIENT services upon a stabilization
[2020-03-17] MEDS: PALIPERIDONE 3 MG TAB.ER.24 PO SCH (09:15)
[2020-03-17] MEDS: MAGNESIUM HYDROXIDE 2,400 MG/10 ML CUP PO PRN (09:19)
--- NOTE | 2020-03-17 16:34 | P.PN ---
Progress Note - Text Progress Note Date: 03/17/20 Subjective: Patient was seen today as a cross coverage for . The patient was evaluated, chart reviewed, case discussed with the treatment team. Patient reports continued to have good sleep and appetite. Patient was very limited in attending groups and other activities, but he continued to take his medications and denies side effects. Patient continued to report feeling stable emotionally and he denies any depression, mood instability, or severe anxiety symptoms. He denies any suicidal or homicidal ideation. He denies any manic or psychotic symptoms. Patient requested discharge tomorrow and he was educated to discuss her discharge plan with the primary team. When discussed with the patient switching Invega to long-acting injectable, he reports previous trial of Invega Sustenna which caused him severe constipation "I has constipation for almost a month after took the injection". Objective: Mental status examination; Appearance: The patient appears stated age, adequately groomed and dressed, no specific features. Gait/posture: Normal gait, Normal arm swinging: No abnormal movements. Attitude and behavior: engaged, cooperative, eye contact. Motor activity: Normal psychomotor activity Speech: Normal rate, tone. Mood: Anxious Affect: Constricted Thought form: goal-directed, linear, coherent. Thought content: Non-delusional, denies suicidal thoughts, denies homicidal thoughts, denies intentions or plans. Perception: Denies any auditory or visual hallucinations Attention: No impairment. Orientation: Patient patient was fully oriented to time place person and situation. Insight: Patient has fair insight about his psychiatric disorder. Judgment: Patient has fair judgment about his psychiatric treatment. Assessment: Unspecified psychotic disorder. Rule out schizoaffective disorder. Plan: Continue inpatient level of care due to need for further monitoring and discharge planning Precautions: Continue 15 minutes check for safety. Consider medical consultation if any acute medical issues arise. Provide the patient individual, group therapy, substance use disorder counseling to give better insight and learn coping skills. Continue follow-up with the patient daily to monitor progress of psychotic and mood instability symptoms. Medications: Continue Invega for mood stabilization and psychotic symptoms. Discharge patient to OUTPATIENT services upon a stabilization
[2020-03-18] MEDS: PALIPERIDONE 3 MG TAB.ER.24 PO SCH (09:41)
[2020-03-18] MEDS: MAGNESIUM HYDROXIDE 2,400 MG/10 ML CUP PO PRN (09:43)
--- NOTE | 2020-03-18 11:34 | P.PN ---
Progress Note - Text Interval history: The patient is found in the hallway he follows me to the [facility] to speak. He indicates his mood is fine. He reports that his mother and sister visited over the weekend. He has not signed a consent allowing us to speak with them but he indicates today that he would be willing to do so. He continues to comply with the invega. He reports no side effects from it. We discussed initiating the Invega Sustenna injection and he is agreeable although he is worried about constipation as a side effect as that occurred with the Haldol decanoate. We will research whether or not the patient would be able to receive the Invega Sustenna on an outpatient basis before initiating the dose today. Staff report no behavioral disturbances over the weekend. Mental status exam: The patient is alert he is dressed in hospital gowns he is wearing a blanket over top. Eye contact is appropriate. He remains seated in the chair without any agitation. He indicates his mood is fine. Affect is constricted throughout the session. He reports no suicidal or homicidal ideation intent or plan. He is reporting no auditory or visual hallucinations he reports no specific delusions. Spontaneously he does not describe any specific delusions. It's likely that they still exist at least in some residual form. He demonstrates no verbal or physical aggressiveness he demonstrates no involuntary repetitive movements. He demonstrates no tangential thinking loose associations or flight of ideas today. Plan: The patient will continue on the invega as prescribed. If we learned that we are able to initiate the Invega Sustenna we will proceed with that medication. We want to be sure that he will be able to get that as an outpatient. It does appear that he is demonstrating some signs of clinical improvement. We will continue to assess his acute safety risk. We will continue to monitor the acuity of his psychotic thinking. He did allow vital signs on 03/15/2020 those were reviewed. We will speak with his family once he signs a consent to obtain collateral information and there opinion as to how the patient is approximating his baseline function.
[2020-03-19] MEDS: PALIPERIDONE 3 MG TAB.ER.24 PO SCH (09:21)
[2020-03-19] MEDS: MAGNESIUM HYDROXIDE 2,400 MG/10 ML CUP PO PRN (09:22)
--- NOTE | 2020-03-19 11:22 | P.PN ---
Progress Note - Text Interval history: The patient is found in his room he was sleeping on the floor rather than his bed. He gets up he stands in his room and participates in a conversation with me. He did sign a release allowing social work to speak with the patient's sister. The patient reports his mood is fine he remains compliant with the oral Invega. It appears that the major hospital organization where he will return does not support Invega Sustenna. They would prefer that he be on Haldol or Prolixin he describes significant side effect with Haldol. The patient is due to return to [facility] once he is clinically stabilized. Staff report go behavioral disturbances. Mental status exam: The patient is alert he is dressed in hospital gowns and wearing a blanket over top he stands in the middle of his room he makes eye contact affect is bland. Speech is fluent spontaneous nonpressured he responds to questions that I ask him. He reports no suicidal or homicidal ideation intent or plan. He is demonstrating no verbal or physical aggressiveness he is demonstrating no involuntary repetitive movements. Insight and judgment are slo wly improving. In terms of psychosis he is not spontaneously speaking of psychotic thoughts however I do believe that they persist at least in residual form. He makes statements that the staff know why he is sleeping on the floor and provides me no explanation. He is oriented to person place and date. Plan: The patient will continue on his current psychotropic medication. It appears that he is demonstrating slow improvement. He may be appropriate for discharge towards the end of the week. We will monitor him for safety and encourage participation in the milieu. We will continue to involve family in his treatment and discharge planning as he will allow.
[2020-03-20] MEDS: PALIPERIDONE 3 MG TAB.ER.24 PO SCH (09:43)
[2020-03-20] MEDS: MAGNESIUM HYDROXIDE 2,400 MG/10 ML CUP PO PRN (09:45)
--- NOTE | 2020-03-20 11:51 | P.PN ---
Progress Note - Text Interval history: The patient is found in the hallway he follows me to an interview room. He indicates his mood is improving. He states that he is glad that he is sleeping through the night staff recorded he slept 7 hours. He remains compliant with the invega. He states that he will continue to take it as long as I indicate it is part of his treatment plan. He reports he is looking forward to returning to work at [employer]. He states that his job is secure and he is able to return. Mental status exam: The patient is an alert -Martiniquais male appearing his stated age. He is dressed in hospital gowns and wearing a blanket over top. He is seated calmly in the chair in the interview room. Eye contact is appropriate. He is pleasant cooperative. He maintains a constricted affect. He readily engages in conversation speech is fluent spontaneous nonpressured. He indicates his mood is improving. He reports no hopelessness thinking no suicidal ideation intent or plan. He reports no auditory or visual hallucinations or any specific delusions. He demonstrates no objective evidence of psychosis during interview. He demonstrates no evidence of hypomania emmy. Insight and judgment improving. He remains oriented to person place and date. He demonstrates no verbal or physical aggressiveness. He demonstrates no involuntary repetitive movements. He demonstrates future oriented thinking especially when discussing employment. Plan: The patient will continue on Invega 9 mg at bedtime. He appears to be clinically stabilizing. We will consider discharging him in the next 1-2 days. Social work will contact the [facility] regarding the transfer. Vital signs reviewed. He is encouraged to fully participate in the milieu.
[2020-03-21] MEDS: PALIPERIDONE 3 MG TAB.ER.24 PO SCH (09:34)
[2020-03-21] MEDS: MAGNESIUM HYDROXIDE 2,400 MG/10 ML CUP PO PRN (09:37)
--- NOTE | 2020-03-21 12:29 | P.PN ---
Subjective Progress Note Date: 03/21/20 Principal diagnosis: Diagnosis: Psychosis NOS Subjective: The patient says that he slept well appetite is good denies any psychotic symptoms or any feelings of persecution or anxiety. Of course like all patients he wants to know when will I be discharged. I pointed out that he would be transferred back to the legal system, he seems to have some difficulty understanding the seriousness of his actions. However he assures me that he will understand that he needs to take his medications at least for the near future. Objective current medication is paliperidone 9 mg daily and some when necessary Zyprexa down which has not been required. Vital signs as temperature today which is 98 8 oral and yesterday pulse rate was 87 respirations 16 blood pressure 150/82. Nursing report is that the patient slept on the floor but says he feels more comfortable that way and he does have some problem with constipation which she asked for and received milk of magnesia. He has not been threatening anyone else or himself. The patient stands with very little body muscle movement in the garibay somewhat flat affect. When asked him why he just stands there, he says he enjoys watching everybody come and go. However he is alert oriented to person place time and circumstance no aggression his responses fit with questions and some of the flat affect could be from his medication. Assessment plan: The patient does not remember what happened when he was psychotic which decreases his motivation to take proper care of it. However he is stabilized and so as soon as the group home system is ready to take him back I think he can go there as long as he continues his medication one positive thing is that he does have a job to go back to that he was doing well at for 3 months prior to this incident Objective - Vital Signs Vital signs: Vital Signs Temp 0 F L 03/21/20 05:57 Pulse 87 03/20/20 07:05 Resp 16 03/20/20 07:05 BP 150/82 03/20/20 07:05 Pulse Ox 98 02/20/20 08:29
[2020-03-22] MEDS: PALIPERIDONE 3 MG TAB.ER.24 PO SCH (09:14)
[2020-03-22] MEDS: MAGNESIUM HYDROXIDE 2,400 MG/10 ML CUP PO PRN (09:15)
--- NOTE | 2020-03-22 11:19 | P.DS ---
Providers Date of admission: 02/20/20 13:46 Expected date of discharge: 03/22/20 Attending physician: Jose L Garcia MD Consults: 02/20/20 14:02 Consult Physician Routine Consulting Provider: Han Samaniego Consult Reason/Comments: H&P and medical Do you want consulting provider notified?: Yes Primary care physician: Stated None Hospital Course: Discharge summary: HPI: The patient has no history of psychosis in the past. He does not remember the current situation. He became quite disorganized and psychotic and was picked up by the police driving over 100 [address] on [address] freeway. However he has been very cooperative and realizes that there was something wrong. Prior to this bizarre event he been working steadily at a job for 3 months living with family but admits he pushed himself to hard and did not take time for himself. Hospital course: The patient was started on InVega 9 mg a day. This he has tolerated well and it is working his psychosis cleared up rapidly. He has some flat affect and is somewhat withdrawn and his participation in groups is somewhat limited but his logic is clear and he is committed to follow-up. No psychological testing was done. No laboratory tests were run. Staff report that he is sleeping well Mental status: Vital signs were refused by the patient however he shows no signs of dizziness constipation denies blurred vision so seems to be tolerating medicine well he has no akathisia denies any significant pain no problems with dizziness or gait self-care is appropriate speech is appropriate is compliant psychomotor activity is decreased has reasonable plans for the future denies any hallucinations or any paranoia or any evidence of delusions he is oriented to person place time and circumstance he is alert denies any urge to hurt himself or anyone else interacts appropriately with peers and staff however does not like to attend groups. Medications: In [place] 9 mg daily the problem is that he may not be able to get this due to insurance reasons if we have to change to a different medicine we may have to delayed the discharge to Wednesday and begin him on something that is more affordable over free well with Haldol or achievements and like that were going to get far more side effects and have trouble with compliance it would be best if we can find some way to get him the INVega Plan: We have contacted the [facility] as the [facility] will have to [facility] to [facility] to process the dangerous driving issue and then they will arrange for follow-up after that he will be going back to [place] to be with his family and we are told that he does have a job at [employer] that he can go to once he is there. Diagnosis: Psychosis NOS Prognosis is fair in the short run because he is cooperative and acknowledges that it is talavera for him to continue on medication in the near future. However is somewhat concrete thinking he'll just go to the pharmacy and pick it up not realizing he has to have insurance and someone to prescribe it so those will have to be arranged. Assessment: Patient is found the experience beneficial and appears to be committed to follow-up and his psychosis is cleared. This is somewhat a problem as he cannot remember anything about his psychotic state and flipped into relative health to easily which will diminish his motivation to continue long-term care. Health Concerns: None he is tolerating medication well and is young and healthy Pertinent Studies: None Procedures: None Patient Condition at Discharge: Fair Plan - Discharge Summary New Discharge Prescriptions: New Paliperidone [Invega] 9 mg PO DAILY 30 Days #90 [id number].[id number] Discharge Medication List Paliperidone [Invega] 9 mg PO DAILY 30 Days #90 [id number].[id number] 03/22/20 [Rx] Follow up Appointment(s)/Referral(s): None,Stated [Primary Care Provider] - 1-2 days Activity/Diet/Wound Care/Special Instructions: Activity and diet as tolerated. Avoid the use of street drugs and alcohol. Take all medications as prescribed. When you are in need of refills on your medications please contact your medical provider and/or outpatient psychiatrist to have this done. Please go to scheduled outpatient appointment for aftercare treatment. If symptoms return or become worse, call the crisis line at and/or go to the nearest emergency room for evaluation.
[2020-03-23] MEDS: MAGNESIUM HYDROXIDE 2,400 MG/10 ML CUP PO PRN (09:10)
[2020-03-23 10:19] VITALS: RESP 20
--- NOTE | 2020-03-23 12:22 | P.PN ---
Progress Note - Text Progress Note Date: 03/23/20 Interval history: Patient was seen in cross coverage today. He has been just recently changed to Risperdal and relays that he is tolerating that fine. He does not verbalize any side effects. He was found in the lounge on the unit. Mental status exam: He is alert and cooperative with the interview. His speech is fluent, not rapid or pressured. He does not display any agitation. His mood overall seems to be stable. He does not verbalize any thoughts of harm to self or others. He does not verbalize any hallucinations or chu delusional thoughts. His thought processes are organized. Plan: Patient will be maintained on current dose of Risperdal. We'll continue to monitor for any medication side effects and monitor his ongoing response to treatment. We'll continue to provide cross coverage for this patient through the weekend.
[2020-03-23] MEDS ORDERED: risperiDONE 1 MG TAB PO SCH (21:00)
--- NOTE | 2020-03-24 13:28 | P.PN ---
Progress Note - Text Progress Note Date: 03/24/20 Interval history: Patient is seen in cross coverage again today. He says he slept at least 7 hours last night. His appetite needing seems to be good. He denies any adverse psychotropic medication side effects. Ental status exam: He is alert and cooperative with the interview. His speech is fluent, not rapid or pressured. Thought processes organized. His mood seems to be stable. He does not verbalize any thoughts of harm to self or others. He does not verbalize any hallucinations. He does not display any agitation. Plan: Patient will be maintained on current psychotropic medication regimen. Continue to monitor for any medication side effects and monitor his ongoing response to treatment.
[2020-03-24 13:51] VITALS: BP 130/78; PULSE 80
[2020-03-24 18:11] VITALS: TEMP 98.4
[2020-03-24] MEDS ORDERED: risperiDONE 2 MG TAB PO SCH (21:00)
--- NOTE | 2020-03-25 11:46 | P.DS ---
Providers Date of admission: 02/20/20 13:46 Expected date of discharge: 03/25/20 Attending physician: Jose L Garcia MD Consults: 02/20/20 14:02 Consult Physician Routine Consulting Provider: [facility] Consult Reason/Comments: H&P and medical Do you want consulting provider notified?: Yes Primary care physician: Stated None Hospital Course: Patient Name: [address] [place] Date of : 89 Patient Status: Inpatient Attending Provider: Jose L Garcia Date: 03/22/20 11:03 Initialization Date: 03/22/20 11:03 Providers Date of admission: 02/20/20 13:46 Expected date of discharge: 03/25/20 Attending physician: Jose L Garcia MD Consults: None 02/20/20 14:02 Consult Physician Routine Consulting Provider: [facility] Consult Reason/Comments: H&P and medical Do you want consulting provider notified?: Yes Primary care physician: Stated None Hospital Course: Discharge summary: HPI: The patient has no history of psychosis in the past. He says he has always been quiet and somewhat withdrawn but that is just his personality. He may do strange decision to not get health insurance which was offered free at his work because "I never get sick ". He does not remember the current situation. He became quite disorganized and psychotic and was picked up by the police driving over 100 [address] [place] [address] free[address], but he cannot remember any of it. However he has been very cooperative and realizes that there was something wrong and says he is willing to take medications. Prior to this bizarre event he been working steadily at a job for 3 months living with family but admits he pushed himself to hard and did not take time for himself. Hospital course: The patient was started on InVega 9 mg a day. This he has tolerated well and it is working his psychosis cleared up rapidly. He has some flat affect and is somewhat withdrawn and his participation in groups is somewhat limited but his logic is clear and he is committed to follow-up. However when we came to discharge him it was evident that he could not continue the InVega due to lack of insurance. So we had to stop the discharge scheduled for last Wednesday give him 1 mg of risperidone the first night and 2 mg last night. He tolerated this well and has been no relapse of psychotic symptoms no stiffness to patient dizziness no restlessness. No psychological testing was done. No laboratory tests were run. Staff report that he is sleeping well Mental status: Vital signs: Temperature yesterday was 90 77R rate 80 respiration 20 blood pressure 130/78 and O2 saturation 98. He shows no signs of dizziness constipation denies blurred vision so seems to be tolerating medicine well he has no akathisia denies any significant pain no problems with dizziness or gait self-care is appropriate speech is appropriate is compliant psychomotor activity is decreased has reasonable plans for the future denies any hallucinations or any paranoia or any evidence of delusions he is oriented to person place time and circumstance he is alert denies any urge to hurt himself or anyone else interacts appropriately with peers and staff however does not like to attend groups. He was recorded to sleep about 5 hours last night. He has been attending groups over the weekend Medications: Risperdal 2 mg daily at bedtime I gave him a month's supply Plan: We have contacted the [facility]way as the patient will have to go back to half-way to process the dangerous driving issue and then they will arrange for follow-up after that he will be going back to [place] to be with his family and we are told that he does have a job at [employer] that he can go to once he is there. Diagnosis: Psychosis NOS Prognosis is fair in the short run because he is cooperative and acknowledges that it is talavera for him to continue on medication in the near future. However is somewhat concrete thinking he'll just go to the pharmacy and pick it up not realizing he has to have insurance and someone to prescribe it so those will have to be arranged. Assessment: Patient is found the experience beneficial and appears to be committed to follow -up and his psychosis is cleared. This is somewhat a problem as he cannot remember anything about his psychotic state and flipped into relative health to easily which will diminish his motivation to continue long-term care. Health Concerns: None he is tolerating medication well and is young and healthy Pertinent Studies: None Procedures: None Patient Condition at Discharge: Fair Plan - Discharge Summary New Discharge Prescriptions: New Risperidone 2 mg daily at bedtime Discharge Medication List Follow up Appointment(s)/Referral(s): None,Stated [Primary Care Provider] - 1-2 days Activity/Diet/Wound Care/Special Instructions: Activity and diet as tolerated. Avoid the use of street drugs and alcohol. Take all medications as prescribed. When you are in need of refills on your medications please contact your medical provider and/or outpatient psychiatrist to have this done. Please go to scheduled outpatient appointment for aftercare treatment. If symptoms return or become worse, call the crisis line at and/or go to the nearest emergency room for evaluation. Assessment: Patient is found the experience beneficial and appears to be committed to follow-up and his psychosis is cleared. This is somewhat a problem as he cannot remember anything about his psychotic state and flipped into relative health to easily which will diminish his motivation to continue long-term care. Health Concerns: None he is tolerating medication well and is young and healthy Patient Condition at Discharge: Fair Plan - Discharge Summary New Discharge Prescriptions: New risperiDONE [RisperDAL] 2 mg PO HS 30 Days #30 tab Discharge Medication List risperiDONE [RisperDAL] 2 mg PO HS 30 Days #30 tab 03/25/20 [Rx] Follow up Appointment(s)/Referral(s): None,Stated [Primary Care Provider] - 1-2 days [facility] [NON-STAFF] - 1 Week Patient Instructions/Handouts: Psychotic Disorder (DC) Activity/Diet/Wound Care/Special Instructions: Activity and diet as tolerated. Avoid the use of street drugs and alcohol. Take all medications as prescribed. When you are in need of refills on your medications please contact your medical provider and/or outpatient psychiatrist to have this done. Please go to scheduled outpatient appointment for aftercare treatment. If symptoms return or become worse, call the crisis line at and/or go to the nearest emergency room for evaluation.
== END 2020-03-25 15:58 | disposition home or self-care (01) | DRG 885 ==
LOC: EC 08:25 → 3MHU 13:46
PROVIDERS: ADMIT Psychiatry & Neurology Psychiatry; ATTEND Psychiatry & Neurology Psychiatry
DX: F29 Unspecified psychosis not due to a substance or known physiological condition (principal); Z91.128 Patient's intentional underdosing of medication regimen for other reason; K59.00 Constipation, unspecified; G47.9 Sleep disorder, unspecified; T50.906A Underdosing of unspecified drugs, medicaments and biological substances, initial encounter; Y63.6 Underdosing and nonadministration of necessary drug, medicament or biological substance; Z78.1 Physical restraint status; Z79.899 Other long term (current) drug therapy
CPT/HCPCS: 82075; 99285